=== PATIENT | female | born 2000 | race Hispanic/Latino ===

== ENCOUNTER 2023-01-05 06:52 | Inpatient (IN) | payer MEDICAID, OTHER, SELFPAY ==
[2023-01-05] MEDS ORDERED: Ibuprofen 800 MG TAB PO PRN (08:29)
[2023-01-05] MEDS ORDERED: Promethazine HCl 25 MG/ML VIAL IM PRN ×3 (08:29→21:33)
[2023-01-05] MEDS ORDERED: Carboprost 250 MCG/ML AMP IM PRN (08:29)
[2023-01-05] MEDS ORDERED: hydrALAZINE 20 MG/ML VIAL SLOW IVP PRN ×2 (08:29)
[2023-01-05] MEDS ORDERED: Ondansetron PF 4 MG/2 ML Vial IVP PRN ×3 (08:29→21:33)
[2023-01-05] MEDS ORDERED: Lidocaine 1% (PF) 30 ML VIAL SC PRN (08:29)
[2023-01-05] MEDS ORDERED: Methylergonovine 0.2 MG/ML VIAL IM PRN (08:29)
[2023-01-05] MEDS ORDERED: Misoprostol 200 MCG TAB PR PRN (08:29)
[2023-01-05] MEDS ORDERED: NS w/ Oxytocin 30 units 500 ML IV SCH (08:30)
[2023-01-05 09:03] LABS: Hemoglobin 11.4 g/dL (12.0-15.5); Mean Corpuscular HGB CONC 34.2 g/dL (32.0-36.0); Mean Corpuscular Hemoglobin 28.7 pg (27.0-33.0); Mean Corpuscular Volume 83.9 fl (81.6-98.3); Mean Platelet Volume 12.6 fl (7.4-10.4); Platelet Count 191 10x3/uL (150-450); RBC Distribution Width 15.8 % (11.5-14.5); Red Blood Cell (RBC) Count 3.97 10x6/uL (3.90-5.03); White Blood Cell (WBC) Count 12.7 10x3/uL (3.5-10.5)
[2023-01-05] MEDS ORDERED: Fentanyl 2 mcg/Bup 0.1% Cadd 100 ML ONE (09:11)
[2023-01-05 09:45] LABS: HBSAg Index 0.16 S/CO (0-0.99); Hep B Surf Ag - L&D Non-Reactive S/CO (NonReactive)
[2023-01-05 09:46] LABS: Syphilis Antibody Nonreactive (Nonreactive); Syphilis Antibody Index 0.04 S/CO (<1.00 Non-Reactive)
[2023-01-05] MEDS ORDERED: Naloxone HCl 0.4 mg/ml Vial IVP PRN ×2 (11:18)
[2023-01-05] MEDS ORDERED: ePHEDrine Sulfate 50 MG/10 ML VIAL SLOW IVP PRN (11:18)
[2023-01-05] MEDS ORDERED: Acetaminophen 325 MG TAB PO PRN ×2 (11:18→21:19)
[2023-01-05] MEDS ORDERED: diphenhydrAMINE 50 MG/ML VIAL IVP PRN ×2 (11:18→21:33)
[2023-01-05] MEDS ORDERED: Lactated Ringer's 500 ML IV PRN (11:18)
[2023-01-05] MEDS ORDERED: Moisturizing Cream (Eucerin) 113 GM JAR TOP PRN (11:18)
[2023-01-05] MEDS ORDERED: Fentanyl 2 mcg/Bupivacaine 0.1% Cassette 100 ML EPIDURAL SCH (11:30)
[2023-01-05] MEDS ORDERED: Communication Order-Pharmacy FS SCH ×2 (11:30→21:45)
[2023-01-05 16:37] VITALS: BMI 27.6
[2023-01-05 17:33] LABS: Platelet Count 172 10x3/uL (150-450)
[2023-01-05 17:51] LABS: ALT (SGPT) 20 U/L (8-55); AST (SGOT) 24 U/L (5-34); Albumin 3.2 g/dL (3.5-5.0); Alkaline Phosphatase 253 U/L (40-110); Bilirubin, Direct 0.2 mg/dL (0.1-0.3); Bilirubin, Total 0.6 mg/dL (0.2-1.2); Protein, Total 6.2 g/dL (6.0-8.3)
[2023-01-05] MEDS ORDERED: Famotidine/PF 20 mg/2ml Vial ONE (18:29)
[2023-01-05] MEDS ORDERED: CEFAZOLIN 2 GM VIAL ONE (18:29)
[2023-01-05] MEDS ORDERED: Azithromycin 500 MG VIAL ONE ×3 (18:29→18:42)
[2023-01-05] MEDS ORDERED: Bicitra 30 ML UDCUP PO PRN (18:33)
[2023-01-05] MEDS ORDERED: Famotidine/PF 20 mg/2ml Vial SLOW IVP PRN (18:33)
[2023-01-05] MEDS ORDERED: Morphine PF 10 MG/10 ML VIAL ONE ×2 (18:37→19:44)
[2023-01-05] MEDS ORDERED: Bupivacaine PF 0.5% 30 ML VIAL ONE (18:38)
[2023-01-05] MEDS ORDERED: CEFAZOLIN 2 GM in Sodium Chloride 0.9% 100 ML IVPB SCH (18:45)
[2023-01-05] MEDS ORDERED: Azithromycin 500 MG in Sodium Chloride 0.9% 250 ML 250 ML IVPB SCH (18:45)
[2023-01-05] MEDS ORDERED: Oxytocin 10 UNITS/ML VIAL ONE ×2 (18:59→20:42)
[2023-01-05] MEDS ORDERED: Methylergonovine 0.2 MG/ML VIAL ONE (19:10)
[2023-01-05] MEDS ORDERED: Misoprostol 200 MCG TAB ONE (19:10)
[2023-01-05] MEDS ORDERED: Carboprost 250 MCG/ML AMP ONE (19:10)
[2023-01-05] MEDS ORDERED: Tranexamic Acid 1,000 MG/10 ML VIAL ONE (19:10)
[2023-01-05] MEDS ORDERED: PROPOFOL 20 ML ONE (20:03)
[2023-01-05] MEDS ORDERED: Succinylcholine 200 MG/10 ml SYRINGE FS ONE (20:12)
[2023-01-05] MEDS ORDERED: Dexamethasone 4 mg/ml Vial ONE (20:12)
[2023-01-05] MEDS ORDERED: Ondansetron PF 4 MG/2 ML Vial ONE (20:12)
[2023-01-05 20:40] LABS: RapidComm Collect By CBN
[2023-01-05 20:42] LABS: RapidComm Collect By CBN
[2023-01-05] MEDS ORDERED: Lidocaine 2% PF 100 mg/5 ml Syringe ONE (20:42)
[2023-01-05] MEDS ORDERED: Ketorolac Tromethamine 30 MG/ML VIAL ONE (20:49)
[2023-01-05] MEDS ORDERED: Boostrix 0.5 ML (Tdap) VIAL (>/=7 yrs of age) IM ONE (21:15)
[2023-01-05] MEDS ORDERED: diphenhydrAMINE 50 MG/ML VIAL IM PRN (21:33)
[2023-01-05] MEDS ORDERED: FENTANYL IV PRN (21:33)
[2023-01-05] MEDS ORDERED: diphenhydrAMINE 25 MG CAP PO PRN (21:33)
[2023-01-05] MEDS ORDERED: SODIUM CHLORIDE 0.9% IV PRN (21:33)
[2023-01-05] MEDS ORDERED: Zolpidem Tartrate 5 MG TAB PO PRN (21:33)
[2023-01-05] MEDS ORDERED: Naloxone HCl 0.4 mg/ml Vial IV PRN (21:33)
[2023-01-05] MEDS ORDERED: Diphenoxylate HCl/Atropine Tablet PO SCH (22:15)
[2023-01-05] MEDS ORDERED: Meperidine HCl/PF 25 MG/ML VIAL SLOW IVP PRN (22:17)
[2023-01-05] MEDS ORDERED: Ondansetron HCl/PF 4 MG/2 ML Vial IVP PRN (22:17)
[2023-01-05] MEDS ORDERED: Fentanyl 100 MCG/2 ML VIAL SLOW IVP PRN (22:17)
[2023-01-05] MEDS ORDERED: Ketorolac Tromethamine 30 MG/ML VIAL IVP SCH (22:30)
[2023-01-05] MEDS ORDERED: Meperidine HCl/PF 25 MG/ML VIAL ONE (22:32)
[2023-01-06 03:01] LABS: Mean Corpuscular HGB CONC 33.1 g/dL (32.0-36.0); Mean Corpuscular Hemoglobin 28.6 pg (27.0-33.0); Mean Corpuscular Volume 86.3 fl (81.6-98.3); Mean Platelet Volume 12.2 fl (7.4-10.4); Platelet Count 171 10x3/uL (150-450); RBC Distribution Width 16.1 % (11.5-14.5); White Blood Cell (WBC) Count 15.4 10x3/uL (3.5-10.5)
[2023-01-06] MEDS: Lactated Ringer's 1,000 ML IV SCH ×2 (08:39→21:45)
[2023-01-06] MEDS ORDERED: Prenatal Vitamin 1 TAB PO SCH (12:30)
[2023-01-06] MEDS ORDERED: Docusate 100 MG CAP PO SCH (12:45)
[2023-01-06] MEDS ORDERED: Bupivacaine 0.25% HCL 30 ML VIAL ONE (20:10)
[2023-01-06] MEDS ORDERED: Bupivacaine/Epinephrine 0.25% 30 ML VIAL ONE (20:10)
[2023-01-06] MEDS ORDERED: Acetaminophen 325 MG TAB PO PRN (20:18)
[2023-01-06] MEDS: guaiFENesin ER 600 MG TAB PO SCH (21:36)
[2023-01-06] MEDS: Senokot S 8.6-50 MG TAB PO SCH (21:36)
[2023-01-06] MEDS: Polyethylene Glycol 3350 17 GM Packet PO SCH (21:37)
[2023-01-06] MEDS: Ibuprofen 800 MG TAB PO PRN (21:43)
[2023-01-06] MEDS: HYDROcodone/Acetaminophen 5/325 mg Tablet PO PRN (21:45)
[2023-01-06] MEDS ORDERED: Simethicone Chewable 80 MG TAB PO PRN (21:50)
[2023-01-06 21:51] LABS: SARS-CoV-2 NAA Rapid Test DETECTED (NotDetected)
[2023-01-06 22:13] LABS: #Eosinphils 0.1 10x3/uL (0.0-0.5); #Monocytes 0.5 10x3/uL (0.0-1.1); #Neutrophils 10.5 10x3/uL (1.5-8.4); %Basophils 0.2 % (0.0-2.0); %Eosinophils 1.1 % (0.0-6.0); %Lymphocytes 11.5 % (18.0-47.0); %Monocytes 3.9 % (0.0-10.0); %Neutrophils 82.7 % (40.0-75.0); Hemoglobin 9.7 g/dL (12.0-15.5); Mean Corpuscular HGB CONC 31.4 g/dL (32.0-36.0); Mean Corpuscular Hemoglobin 28.5 pg (27.0-33.0); Mean Corpuscular Volume 90.9 fl (81.6-98.3); Mean Platelet Volume 11.5 fl (7.4-10.4); Platelet Count 162 10x3/uL (150-450); RBC Distribution Width 16.9 % (11.5-14.5); White Blood Cell (WBC) Count 12.7 10x3/uL (3.5-10.5)
[2023-01-06] MEDS ORDERED: Lactated Ringer's 500 ML IV SCH (23:15)
[2023-01-07] MEDS: Lactated Ringer's 1,000 ML IV SCH ×3 (02:40→10:15)
[2023-01-07 03:12] LABS: Bilirubin Neg (Negative); Blood, Urine 250 (Negative); Clarity Clear (Clear); Glucose, Urine (Dipstick) Normal (Negative); Ketone, Urine 5 mg/dL (Negative); Leukocyte 100 (Negative); Nitrite Negative (Negative); Protein, Urine (Dipstick) 15 mg/dl (Neg-Trace); Specific Gravity, Urine 1.005 (1.005-1.030); Urobilinogen Normal mg/dL (Less than 2)
[2023-01-07 03:24] LABS: Bacteria/HPF Rare-Few HPF (None Seen); CAUTI Indications for Culture Fever or rigors; Squamous Epithelial 0-3 HPF (0-3); Urine Culture Reflex No No
[2023-01-07] MEDS: HYDROcodone/Acetaminophen 5/325 mg Tablet PO PRN ×4 (05:10→22:34)
[2023-01-07] MEDS: Ibuprofen 800 MG TAB PO PRN ×3 (05:10→22:34)
[2023-01-07] MEDS: Senokot S 8.6-50 MG TAB PO SCH ×2 (08:05→20:39)
[2023-01-07] MEDS: guaiFENesin ER 600 MG TAB PO SCH ×2 (08:05→20:39)
[2023-01-07] MEDS: Polyethylene Glycol 3350 17 GM Packet PO SCH ×2 (08:05→20:39)
[2023-01-07] MEDS ORDERED: Prenatal Vitamin 1 TAB PO SCH (09:00)
[2023-01-08] MEDS: Lactated Ringer's 1,000 ML IV SCH ×2 (02:31→06:24)
[2023-01-08] MEDS: Ibuprofen 800 MG TAB PO PRN (05:39)
[2023-01-08] MEDS: Senokot S 8.6-50 MG TAB PO SCH (08:11)
[2023-01-08] MEDS: Polyethylene Glycol 3350 17 GM Packet PO SCH (08:11)
[2023-01-08] MEDS: guaiFENesin ER 600 MG TAB PO SCH (08:11)
[2023-01-08] MEDS: HYDROcodone/Acetaminophen 5/325 mg Tablet PO PRN (10:14)
[2023-01-08 11:26] VITALS: BP 114/70; TEMP 97.7
== END 2023-01-08 13:20 | disposition home or self-care (01) | DRG 786 ==
LOC: CSHLD/OP 06:52 → CSHLD 09:09 → CSHPP 01-06 00:21
PROVIDERS: ADMIT Obstetrics & Gynecology; ATTEND Obstetrics & Gynecology
PROC: 10D00Z1 Extraction of Products of Conception, Low, Open Approach (ICD-10-PCS; principal; 2023-01-05)
PROC: 8E0ZXY6 Isolation (ICD-10-PCS; 2023-01-05)
DX: O62.0 Primary inadequate contractions (principal); U07.1 COVID-19; O98.52 Other viral diseases complicating childbirth; Z3A.40 40 weeks gestation of pregnancy; O77.0 Labor and delivery complicated by meconium in amniotic fluid; Z37.1 Single stillbirth
CPT/HCPCS: 36415; 51702; 80076; 81001; 82805; 85027; 86780; 86850; 86900; 86901; 87340; 88307; 99285; J1100; J1885; J2001; J2175; J2274; J2405; J2590; J2704; J3010; J7120; S0020